=== PATIENT | female | born 1990 | race Caucasian/White ===

== ENCOUNTER 2018-01-13 12:48 | Emergency (ER) | payer OTHER ==
[~2018-01-13] VITALS: Ht 162.6 cm; Wt 90.0 kg
[2018-01-13 12:57] VITALS: TEMP 37.1
[2018-01-13] MEDS ORDERED: SODIUM CHLORIDE 0.9% 1000ML 1,000 ML IV STA (14:17)
[2018-01-13 14:22] VITALS: O2SAT 98; Ht 162.6 cm; Wt 90.0 kg
[2018-01-13] MEDS ORDERED: OPTIRAY 320 IV PRN (14:30)
[2018-01-13 14:31] LABS: BASO % 0.3 %; BASO ABS # 0.04 K/uL (0-0.2); EOS % 0.6 %; HEMATOCRIT 42.9 % (37-47); HEMOGLOBIN 15.4 g/dL (12.0-16.0); IG# 0.04 K/uL (0.00-0.02); LYMPH % 10.5 %; LYMPH ABS # 1.63 K/uL (1.2-3.4); MEAN CELL VOLUME 85.8 fL (80-100); MEAN CORPUSCULAR HEMOGLOBIN 30.8 pg (25-34); MEAN CORPUSCULAR HGB CONC 35.9 g/dl (32-36); MEAN PLATELET VOLUME 11.5 fL (7.4-10.4); MONO % 6.7 %; MONO ABS # 1.05 K/uL (0.11-0.59); NEUT % 81.6 %; PLATELET COUNT 235 K/uL (130-400); RED CELL DISTRIBUTION WIDTH CV 12.4 % (11.5-14.5); RED CELL DISTRIBUTION WIDTH SD 38.8 fL (36.4-46.3); WHITE BLOOD COUNT 15.56 K/uL (4.8-10.8)
[2018-01-13 15:40] LABS: PTT PATIENT 32.9 SECONDS (21.0-31.0)
--- NOTE | 2018-01-13 15:49 | EMERGENCY ROOM VISIT NOTE ---
ED Visit Note First contact with patient: 13:56 CHIEF COMPLAINT: Right-sided chest pain, elevated d-dimer HISTORY OF PRESENTING ILLNESS: This is a 27-year-old female who presents the emergency department via private vehicle with her with complaint of right-sided chest pain for the past 4 days. She states the pain is in the right anterior aspect of her chest, pain is not worse with lying flat or with taking a deep breath, is worse with movement, better with rest, constant, currently rates as 4/10. She has not tried any medications for her pain. She states that she went to an acute care clinic yesterday and they did a D-dimer test. She states they called her today and told her it was elevated then she should go to the ER for further evaluation. She denies any shortness of breath , hemoptysis, dizziness or syncope. She denies any leg pain or swelling. She does not take any exogenous estrogen and she does not believe that she is . She does report recent car trip back and forth from [place] about a week ago, she states that she is in the process of moving to [place] with her . She denies any history of blood clots and denies any known family history of blood clots or bleeding disorders. She denies any headache, neck pain or stiffness, back pain, nausea or vomiting, urinary symptoms, or unusual rash. REVIEW OF SYSTEMS: A complete 10 point review of systems was reviewed with the patient with pertinent positives and negatives as per history of present illness. All else were negative. PAST MEDICAL HISTORY: No significant past medical or surgical history. SOCIAL HISTORY: Lives at home with her . She denies tobacco use. ALLERGIES: No known allergies. PHYSICAL EXAM: CONSTITUTIONAL: Pleasant and cooperative. No acute distress. Mildly dehydrated , but otherwise well appearing and well nourished. HEENT: Normocephalic, atraumatic. Pupils equal, round and reactive to light, EOMI. TMs normal. Pharynx normal. Tacky mucous membranes. NECK: Supple, full active range of motion without discomfort. RESPIRATORY: Lung sounds are diminished in the right lower lobe, otherwise clear to auscultation bilaterally with no wheezing, crackles, rhonchi or stridor. Equal expansion bilaterally. CARDIOVASCULAR: Tachycardic. Regular rhythm with no murmurs, rubs or gallops. Normal peripheral perfusion. No edema. CHEST WALL: Tenderness to palpation of the right anterior rib cage just below the breast, reproduces complaint. No crepitus, no ecchymosis, erythema, or abrasions. GASTROINTESTINAL: Soft, nontender, nondistended. No palpable masses or HSM. Bowel sounds present in all quadrants. MUSCULOSKELETAL: Full range of motion of all joints without discomfort. No calf tenderness to palpation, no notable swelling of the calves, negative INTEGUMENTARY: No rash or other significant dermatologic conditions noted. NEUROLOGIC: Alert and oriented X 4 with normal affect. Normal strength and sensation in all 4 extremities. No focal neurologic deficits noted. Normal speech. Normal gait observed. ED COURSE AND MEDICAL DECISION MAKING: CC: Patient presenting with complaint of right-sided chest pain, elevated d- dimer DIFFERENTIAL DIAGNOSIS: Includes, but not limited to PE, pneumonia, pleuritis, pleural effusion, musculoskeletal pain, costochondritis, dehydration, anemia, electrolyte abnormality, among others. INTERPRETATION OF LABS: Leukocytosis with left shift, no anemia, normal platelets, no significant electrolyte abnormalities, normal renal function, normal liver enzymes. Coagulation factors within normal limits. UA otherwise appears to be contaminated. Negative urine . D-dimer from yesterday reviewed and noted to be significant elevated. IMAGING: (CHEST FOR PE) ANGIO WITH CLINICAL HISTORY: 27 years-old Female presenting with ^EVALUATE FOR PE ^RESPIRATORY DISTRESS.DYSPNEA, right-sided pain. TECHNIQUE: Multidetector CT angiography of the chest was performed after administration of intravenous contrast. 3-D volumetric and/or maximum intensity projection (MIP) images were subsequently reconstructed for review. IV contrast: 92 mL of Optiray 320. A dose lowering technique was used consistent with the principles of ALARA (as low as reasonably achievable). COMPARISON: None. CT DOSE (mGy.cm): The estimated cumulative dose is 450.39 mGycm. FINDINGS: Dice Table Operator topogram: Unremarkable. Pulmonary vasculature: The study is suboptimal for the assessment of the pulmonary vascular tree secondary to timing of the contrast bolus and respiratory motion artifact. Allowing for limited image quality, no central filling defect to suggest pulmonary embolus. Main pulmonary artery is not enlarged. No flattening of the interventricular septum. No intracardiac filling defect. No reflux of contrast into the hepatic veins. Remaining chest: On soft tissue windows, normal thyroid and thoracic inlet. No axillary, supraclavicular, hilar, or mediastinal lymphadenopathy. Normal aorta. Top normal cardiac size. No pericardial or pleural effusion. Upper abdomen normal. On lung windows, bandlike opacity in the right lower lobe likely atelectasis. Two punctate nonspecific nodules are noted in the right upper and right middle lobes (series 4 image 115 and image 97). No other focal infiltrate or nodule. Mild bronchial wall thickening suggested. Central airways patent. No pneumothorax. On bone windows, normal osseous structures. IMPRESSION: 1. No evidence of pulmonary embolus. 2. Mild bronchial wall thickening. This is nonspecific but could be seen in the setting of reactive airways disease or viral bronchiolitis. 3. Limited right lower lobe atelectasis. 4. Top normal cardiac size. EKG: Shows normal sinus rhythm with a rate of 100 bpm, no ST or T-wave changes, no ectopy by my interpretation. No previous EKGs available for comparison. MEDICATION RECONCILIATION: I attest that I have personally reviewed the patient 's current medication list. INITIAL VITAL SIGNS REVIEW: I reviewed the patient's initial vital signs and interpret them as follows: T: Afebrile; BP: Hypertensive; HR: Tachycardic; RR : Within normal limits; Pulse Ox: Within normal limits on room air. Blood pressure screening: The patient was found to have an elevated blood pressure, which was felt to be situational. SUMMARY: Patient was evaluated at bedside, history and physical exam performed. Patient is alert and oriented, in no acute distress, resting calmly in stretcher. Patient is noted to be tachycardic, but is not tachypneic or hypoxic. No labored breathing. She denies shortness of breath. Patient has tenderness to palpation of the right anterior chest wall just below the right breast, reproduces her complaint. There is no abdominal pain to palpation. EKG reviewed at bedside, normal sinus rhythm with no acute ischemic changes or evidence of right heart strain. Orders were placed at bedside for labs, UA and urine , IV fluids for hydration, chest CT to evaluate for PE. Patient was offered something for pain, she declines at this time. Patient discussed with Dr. Judd, who agrees with my assessment and plan. Labs and imaging reviewed as above, unremarkable. CT negative for PE. No other evidence for effusion or pneumonia. Given the reproducible nature of the patient's chest wall pain, I suspect this may be musculoskeletal such as costochondritis. Patient was offered IV Toradol for her pain, she agreed to this. Patient reassessed multiple times throughout ED stay, she is remained stable, her tachycardia is resolved after IV fluids, and her pain is improved after IV Toradol. Patient was updated on all results and plan for discharge, she was encouraged to follow closely with her PCP. Patient was also given strict return precautions should her symptoms worsen, she verbalized understanding. Patient was discharged home in stable condition and ambulatory. Current/Historical Medications No Active Prescriptions or Reported Meds Allergies Coded Allergies: NO KNOWN DRUG ALLERGIES (Unverified Allergy, Unknown, KNOWN, 01/13/18) Vital Signs Date Time Temp Pulse Resp B/P (MAP) Pulse Ox O2 Delivery O2 Flow Rate FiO2 01/13/18 19:57 86 132/87 96 01/13/18 19:13 82 141/90 98 Room Air 01/13/18 16:54 95 17 155/100 96 Room Air 01/13/18 14:53 93 18 135/84 99 Room Air 01/13/18 14:32 98 01/13/18 14:22 98 Room Air 01/13/18 12:57 37.1 115 20 131/90 98 Room Air Laboratory Results 01/13/18 14:00 Red Blood Count 5.00, Mean Corpuscular Volume 85.8, Mean Corpuscular Hemoglobin 30.8, Mean Corpuscular Hemoglobin Concent 35.9, Mean Platelet Volume 11.5, Neutrophils (%) (Auto) 81.6, Lymphocytes (%) (Auto) 10.5, Monocytes (%) (Auto) 6.7, Eosinophils (%) (Auto) 0.6, Basophils (%) (Auto) 0.3, Neutrophils # (Auto) 12.70, Lymphocytes # (Auto) 1.63, Monocytes # (Auto) 1.05, Eosinophils # (Auto) 0.10, Basophils # (Auto) 0.04 01/13/18 15:11 Test 01/13/18 14:00 01/13/18 14:29 01/13/18 15:09 01/13/18 15:11 White Blood Count 15.56 K/uL (4.8-10.8) Red Blood Count 5.00 M/uL (4.2-5.4) Hemoglobin 15.4 g/dL (12.0-16.0) Hematocrit 42.9 % (37-47) Mean Corpuscular Volume 85.8 fL (80-100) Mean Corpuscular Hemoglobin 30.8 pg (25-34) Mean Corpuscular Hemoglobin Concent 35.9 g/dl (32-36) Platelet Count 235 K/uL (130-400) Mean Platelet Volume 11.5 fL (7.4-10.4) Neutrophils (%) (Auto) 81.6 % Lymphocytes (%) (Auto) 10.5 % Monocytes (%) (Auto) 6.7 % Eosinophils (%) (Auto) 0.6 % Basophils (%) (Auto) 0.3 % Neutrophils # (Auto) 12.70 K/uL (1.4-6.5) Lymphocytes # (Auto) 1.63 K/uL (1.2-3.4) Monocytes # (Auto) 1.05 K/uL (0.11-0.59) Eosinophils # (Auto) 0.10 K/uL (0-0.5) Basophils # (Auto) 0.04 K/uL (0-0.2) RDW Standard Deviation 38.8 fL (36.4-46.3) RDW Coefficient of Variation 12.4 % (11.5-14.5) Immature Granulocyte % (Auto) 0.3 % Immature Granulocyte # (Auto) 0.04 K/uL (0.00-0.02) Urine Color YELLOW Urine Appearance CLEAR (CLEAR) Urine pH 6.0 (4.5-7.5) Urine Specific [place] 1.010 (1.000-1.030) Urine Protein TRACE (NEG) Urine Glucose (UA) NEG (NEG) Urine Ketones TRACE (NEG) Urine Occult Blood NEG (NEG) Urine Nitrite NEG (NEG) Urine Bilirubin NEG (NEG) Urine Urobilinogen NEG (NEG) Urine Leukocyte Esterase NEG (NEG) Urine WBC (Auto) /hpf (0-5) Urine RBC (Auto) /hpf (0-4) Urine Hyaline Casts (Auto) /lpf (0-5) Urine Epithelial Cells (Auto) /lpf (0-5) Urine Bacteria (Auto) (NEG) Urine RBC 0-4 /hpf (0-4) Urine WBC 1-5 /hpf (0-5) Urine Epithelial Cells >30 /lpf (0-5) Urine Bacteria 3+ (NEG) Urine Test NEG (NEG) Prothrombin Time 10.1 SECONDS (9.0-12.0) Prothromb Time International Ratio 1.0 (0.9-1.1) Activated Partial Thromboplast Time 32.9 SECONDS (21.0-31.0) Partial Thromboplastin Ratio 1.3 Anion Gap 7.0 mmol/L (3-11) Est Creatinine Clear Calc Drug Dose 113.4 ml/min Estimated GFR () 115.4 Estimated GFR (Non- 99.5 BUN/Creatinine Ratio 10.9 (10-20) Calcium Level 8.8 mg/dl (8.5-10.1) Total Bilirubin 0.5 mg/dl (0.2-1) Aspartate Amino Transf (AST/SGOT) 11 U/L (15-37) Alanine Aminotransferase (ALT/SGPT) 23 U/L (12-78) Alkaline Phosphatase 65 U/L (45-117) Total Protein 7.6 gm/dl (6.4-8.2) Albumin 3.0 gm/dl (3.4-5.0) Globulin 4.6 gm/dl (2.5-4.0) Albumin/Globulin Ratio 0.7 (0.9-2) Medications Administered Medications (Trade) Dose Ordered Sig/Blaine Route Start Time Stop Time Status Last Admin Dose Admin Sodium Chloride 1,000 ml @ 999 mls/hr Q1H1M STAT IV 01/13/18 14:17 01/13/18 15:18 DC 01/13/18 14:30 999 MLS/HR Ketorolac Tromethamine (Toradol Inj) 15 mg NOW STAT IV 01/13/18 18:48 01/13/18 18:49 DC 01/13/18 19:12 15 MG Departure Information Impression Primary Impression: Right-sided chest wall pain Dispostion Home / Self-Care Condition GOOD Prescriptions No Active Prescriptions or Reported Meds Referrals Anastasiia Suarez CRNP (PCP) Patient Instructions ED Chest Pain Costochondritis, [facility] Additional Instructions You have been evaluated and treated in the Emergency Department today for your right-sided chest pain. Laboratory results and imaging studies have ruled out any emergent causes for your symptoms which would warrant admission or surgery. For pain control, you can use the following [id number] medicines (if >12 yo): - Regular strength (325mg/tab) Tylenol (acetaminophen) 2 tabs every 6 hours as needed. Do not exceed 10 tablets in a 24 hour period. Avoid taking more than 3000 mg of Tylenol per day. This includes any other sources of acetaminophen you may take on a regular basis. - Regular strength (200 mg/tab) Advil (ibuprofen) 3 tabs every 6 hours as needed. Do not exceed a dose of 2400 mg per day. - For best results, alternate between Tylenol and Advil every 3-4 hours. You may also try alternating ice and heat to the area to help reduce pain. Drink plenty of fluids to stay well hydrated. Please follow-up with your Primary Care Provider in the next few days if your symptoms are not improving. Return to the emergency department for severe worsening chest pain, shortness of breath or inability to catch her breath, coughing up blood, fevers > 101, severe dizziness or passing out, or any other concerns. Work Instructions Return To Work: 2 days
[2018-01-13 16:13] LABS: CALCIUM 8.8 mg/dl (8.5-10.1); CREATININE 0.81 mg/dl (0.60-1.20); POTASSIUM 3.6 mmol/L (3.5-5.1); TOTAL PROTEIN 7.6 gm/dl (6.4-8.2)
--- NOTE | 2018-01-13 17:38 | DIAGNOSTIC IMAGING REPORT ---
(CHEST FOR PE) ANGIO WITH CLINICAL HISTORY: 27 years-old Female presenting with ^EVALUATE FOR PE ^RESPIRATORY DISTRESS.DYSPNEA, right-sided pain. TECHNIQUE: Multidetector CT angiography of the chest was performed after administration of intravenous contrast. 3-D volumetric and/or maximum intensity projection (MIP) images were subsequently reconstructed for review. IV contrast: 92 mL of Optiray 320. A dose lowering technique was used consistent with the principles of ALARA (as low as reasonably achievable). COMPARISON: None. CT DOSE (mGy.cm): The estimated cumulative dose is 450.39 mGycm. FINDINGS: Credit Card Interviewer topogram: Unremarkable. Pulmonary vasculature: The study is suboptimal for the assessment of the pulmonary vascular tree secondary to timing of the contrast bolus and respiratory motion artifact. Allowing for limited image quality, no central filling defect to suggest pulmonary embolus. Main pulmonary artery is not enlarged. No flattening of the interventricular septum. No intracardiac filling defect. No reflux of contrast into the hepatic veins. Remaining chest: On soft tissue windows, normal thyroid and thoracic inlet. No axillary, supraclavicular, hilar, or mediastinal lymphadenopathy. Normal aorta. Top normal cardiac size. No pericardial or pleural effusion. Upper abdomen normal. On lung windows, bandlike opacity in the right lower lobe likely atelectasis. Two punctate nonspecific nodules are noted in the right upper and right middle lobes (series 4 image 115 and image 97). No other focal infiltrate or nodule. Mild bronchial wall thickening suggested. Central airways patent. No pneumothorax. On bone windows, normal osseous structures. IMPRESSION: 1. No evidence of pulmonary embolus. 2. Mild bronchial wall thickening. This is nonspecific but could be seen in the setting of reactive airways disease or viral bronchiolitis. 3. Limited right lower lobe atelectasis. 4. Top normal cardiac size. Electronically signed by: Christian Carrizales M.D. 01/13/2018 5:37 PM Dictated Date/Time: 01/13/2018 5:32 PM
[2018-01-13] MEDS ORDERED: KETOROLAC TROMETHAMINE 30 MG/ML VIAL IV STA (18:48)
[2018-01-13 19:57] VITALS: BP 132/87; PULSE 86; O2SAT 96
== END 2018-01-13 19:58 | disposition home or self-care (01) ==
LOC: C.EDB 12:50
DX: R07.89 Other chest pain (principal)